=== PATIENT | male | born 1960 | race Caucasian/White ===

== ENCOUNTER 2017-03-30 21:09 | Emergency (ER) | payer OTHER ==
--- NOTE | 2017-03-30 22:03 | XRAY Preliminary Report ---
Exam: XR Ankle 3 View RT IMPRESSION: No bony abnormality. [facility] SITE ID: [id number]
--- NOTE | 2017-03-30 22:04 | XRAY Report ---
EXAM: RIGHT ANKLE RADIOGRAPHY EXAM DATE: 03/30/2017 09:38 PM. CLINICAL HISTORY: Fall. Inversion injury. Pain and swelling. COMPARISON: None. TECHNIQUE: 3 views. FINDINGS: Bones: Normal. No fractures or bone lesions. Joints: Normal. No effusion. No subluxations. The ankle mortise is normally aligned. Soft Tissues: Lateral soft tissue swelling. IMPRESSION: No bony abnormality. [facility] Referring Provider Line: [phone] SITE ID: [id number]
--- NOTE | 2017-03-30 22:12 | ED Physician Documentation ---
PD HPI LOWER EXT INJURY - Stated complaint Stated Complaint: RT ANKLE PAIN - Chief complaint Chief Complaint: Ext Problem - History obtained from History obtained from: Patient - History of Present Illness PD HPI LOW EXT INJURY LOCATION: Right, Ankle Type of injury: Twist Where injury occurred: Home Timing - onset: Today Timing - duration: Hours Timing - details: Abrupt onset, Still present Worsened by: Moving, Palpating, Other (walking) Associated symptoms: Swelling. No: Weakness, Numbness Similar symptoms before: Has not had sx before Recently seen: Not recently seen Review of Systems Skin: denies: Abrasion (s), Laceration (s) Neurologic: denies: Focal weakness, Numbness, Headache, Head injury PD PAST MEDICAL HISTORY - Past Medical History Past Medical History: No Psych: None Musculoskeletal: None - Past Surgical History Past Surgical History: Yes - Present Medications Home Medications: Ambulatory Orders Medication Instructions Recorded Confirmed HYDROcod/ACETAM 5/325 [[place] 5/325] 1 tab PO Q6H PRN #15 tablet 03/30/17 - Allergies Allergies/Adverse Reactions: Allergies Allergy/AdvReac Type Severity Reaction Status Date / Time No Known Drug Allergies Allergy Verified 03/30/17 21:18 - Social History Does the pt smoke?: No Smoking Status: Never smoker Does the pt drink ETOH?: Yes Does the pt have substance abuse?: No - Immunizations Immunizations are current?: Yes - POLST Patient has POLST: No PD ED PE NORMAL - Vitals Vital signs reviewed: Yes - General General: Alert and oriented X 3, No acute distress, Well developed/nourished - Derm Derm: Normal color, Warm and dry - Extremities Extremities: Other (lateral ankle with moderate swelling and tenderness. Pain with ROm of the ankle, particularly inversion and plantarflexion. ) - Neuro Neuro: Alert and oriented X 3, No motor deficit, No sensory deficit Results - Vitals Vitals: Oxygen O2 Source Room air - Rads (name of study) right ankle Radiology: Prelim report reviewed, EMP read contemporaneously PD MEDICAL DECISION MAKING - ED course Complexity details: reviewed results (no fractures. Presume moderate sprain as unable to bear weight comfortably. ), considered differential, d/w patient Departure - Departure Disposition: 01 Home, Self Care Clinical Impression: Right ankle sprain Qualifiers: Encounter type: initial encounter Involved ligament of ankle: other ligament Qualified Code(s): S93.491A - Sprain of other ligament of right ankle, initial encounter Condition: Stable Record reviewed to determine appropriate education?: Yes Instructions: ED Sprain Ankle W X Ray Prescriptions: HYDROcod/ACETAM 5/325 [[place] 5/325] 1 tab PO Q6H PRN #15 tablet PRN Reason: Pain Comments: Use the ankle brace when up and around for 2-3 weeks until completely healed. Use ibuprofen or naproxen to 3 times daily for the next 5 or 6 days to help reduce pain and inflammation. Ice and elevate the ankle often the next couple of days. Progress weightbearing and activity as able provided the ankle is supported with use so it does not reinjure. Recheck if not better over the next couple of weeks. Use Tylenol or hydrocodone only if needed for worse pain. Discharge Date/Time: 03/30/17 22:55
[2017-03-30] MEDS ORDERED: HYDROcod/ACET 5/325 Prepack 6 PO ONE (22:22)
[2017-03-30 22:45] VITALS: BP 114/81
== END 2017-03-30 22:55 | disposition home or self-care (01) ==
LOC: ED 21:09
DX: S93.491A Sprain of other ligament of right ankle, initial encounter (principal); X50.0XXA Overexertion from strenuous movement or load, initial encounter; Y92.019 Unspecified place in single-family (private) house as the place of occurrence of the external cause
CPT/HCPCS: 99283

== ENCOUNTER 2017-11-02 11:04 | Outpatient (CLI) | payer OTHER ==
--- NOTE | 2017-11-02 15:23 | XRAY Report ---
TWO VIEW CHEST: 11/02/2017 CLINICAL INDICATION: Persistent cough. COMPARISON: Frontal chest 01/27/2011. FINDINGS: Frontal and lateral views of the chest demonstrate a normal cardiac silhouette. The lungs are clear. No effusion or pneumothorax is present. IMPRESSION: NORMAL CHEST. TD: 11/02/2017 15:23
== END 2017-11-02 11:05 | disposition home or self-care (01) ==
LOC: DI.S 11:04
PROVIDERS: ATTEND Registered Nurse
DX: R05 Cough (principal)
CPT/HCPCS: 71046

== ENCOUNTER 2020-11-11 17:41 | Outpatient (CLI) | payer OTHER ==
--- NOTE | 2020-11-11 18:23 | XRAY Report ---
PROCEDURE: Hand 3 View RT INDICATIONS: RIGHT MCP JOINY DEFORMITY,PAIN, SWELLING TECHNIQUE: 3 views of the hand(s) acquired. COMPARISON: None FINDINGS: Bones: No fractures or dislocations. Osteoarthritic changes are noted throughout interphalangeal teetee nts and first MCP joint. Subtle erosion involving ulnar aspect of third MCP joint is seen. No suspici ous bony lesions. Soft tissues: No suspicious soft tissue calcifications. 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 Superimposed osteoarthritic changes in first MCP joint and first through fif th interphalangeal joints. Reviewed by: Garrett Garcia MD on 11/11/2020 6:22 PM PST Approved by: Garrett Garcia MD on 11/11/2020 6:22 PM PST Station ID: [id number]
--- NOTE | 2020-11-11 18:23 | XRAY Report ---
PROCEDURE: Chest 2 View X-Ray INDICATIONS: CHEST XRAY TECHNIQUE: 2 view(s) of the chest. COMPARISON: None. FINDINGS: Surgical changes and devices: None. Lungs and pleura: No pleural effusions or pneumothorax. Lungs are clear. Mediastinum: Mediastinal contours are normal. Heart size is normal. Bones and chest wall: No suspicious bony abnormalities. Soft tissues appear unremarkable. IMPRESSION: No acute cardiopulmonary pathology. Reviewed by: Garrett Garcia MD on 11/11/2020 6:22 PM [facility] Approved by: Garrett aGrcia MD on 11/11/2020 6:22 PM [facility] Station ID: [id number]
== END 2020-11-11 17:42 | disposition home or self-care (01) ==
LOC: DI.S 17:41
PROVIDERS: ATTEND Nurse Practitioner Family
DX: M79.644 Pain in right finger(s) (principal); M19.041 Primary osteoarthritis, right hand; R05 Cough

== ENCOUNTER 2020-11-18 18:19 | Outpatient (CLI) | payer OTHER ==
--- NOTE | 2020-11-18 19:05 | XRAY Report ---
PROCEDURE: Lumbar Spine 2 View INDICATIONS: LOW BACK PAIN TECHNIQUE: 2 views of the lumbar spine were acquired. COMPARISON: CXR 11/11/2020. FINDINGS: Bones: 5 lft-smg-vydflyw vertebrae suspected. There is normal bony alignment. No vertebral body co mpression fractures. Mild degenerative change appreciated. No suspicious bony lesions. Soft tissues: Overlying bowel gas pattern is normal. No suspicious soft tissue calcifications. IMPRESSION: Mild degenerative change of the lumbar spine. If clinically indicated consider further evaluation with MRI or CT. Reviewed by: Yoni Nash MD on 11/18/2020 6:04 PM [facility] Approved by: Yoni Nash MD on 11/18/2020 6:04 PM [facility] Station ID: [id number]
== END 2020-11-18 18:20 | disposition home or self-care (01) ==
LOC: DI.S 18:19
PROVIDERS: ATTEND Nurse Practitioner Family
DX: M47.816 Spondylosis without myelopathy or radiculopathy, lumbar region (principal)

== ENCOUNTER 2022-03-24 03:33 | Emergency (ER) | payer OTHER ==
[2022-03-24] MEDS ORDERED: LIDOCAINE PATCH 5% TOP STA (04:00)
[2022-03-24] MEDS ORDERED: KETOROLAC 60 MG/2 ML VIAL IM STA (04:00)
--- NOTE | 2022-03-24 04:09 | ED Physician Documentation ---
PD HPI LOWER EXT INJURY - Stated complaint Stated Complaint: left leg pain - Chief complaint Chief Complaint: Ext Problem - History obtained from History obtained from: Patient - Additional information Additional information: Patient is a 61-year-old male with no significant past medical history presenting for evaluation of left thigh pain that has been present for the last 3 to 4 days. He describes it as a deep ache in the bone. Nothing makes it better or worse. He has tried stretching it and drinking more water thinking it was a muscle cramp which is not changed the pain. He has been having trouble sleeping the past 3 nights. He denies any known injuries or falls. He has been moving furniture around and thought perhaps he had overdone it. Again it does not feel worse when he is ambulating on it. Pain does not radiate elsewhere. He denies headache, fever, chest pain, trouble breathing, abdominal pain, back pain, lower leg pain. He denies a history of PE or DVT. Review of Systems Constitutional: denies: Fever Nose: denies: Congestion Throat: denies: Sore throat Cardiac: denies: Chest pain / pressure Respiratory: denies: Dyspnea GI: denies: Abdominal Pain, Vomiting Skin: denies: Rash Musculoskeletal: reports: Extremity pain Neurologic: denies: Headache PD PAST MEDICAL HISTORY - Past Medical History Past Medical History: No Psych: None Musculoskeletal: None - Past Surgical History Past Surgical History: Yes - Present Medications Home Medications: Ambulatory Orders Medication Instructions Recorded Confirmed Fluticasone/Salmeterol [Advair 1 puffs INH BID 03/24/22 03/24/22 100-50 Diskus] - Allergies Allergies/Adverse Reactions: Allergies Allergy/AdvReac Type Severity Reaction Status Date / Time No Known Drug Allergies Allergy Verified 03/24/22 03:42 - Social History Does the pt smoke?: No Smoking Status: Never smoker Does the pt drink ETOH?: Yes Does the pt have substance abuse?: No - Immunizations Immunizations are current?: Yes - POLST Patient has POLST: No PD ED PE NORMAL - General General: Alert and oriented X 3, No acute distress, Well developed/nourished - HEENT HEENT: Atraumatic, Moist mucous membranes - Neck Neck: Supple, no meningeal sign - Cardiac Cardiac: RRR, No murmur, Strong equal pulses - Respiratory Respiratory: No respiratory distress, Clear bilaterally - Abdomen Abdomen: Normal bowel sounds, Soft, Non tender, Non distended - Derm Derm: Warm and dry - Extremities Extremities: No deformity, Normal ROM s pain, No edema, No calf tenderness / cord, Other (Pedal pulses intact,Normal range of motion without pain at left hip and knee,Reports mild tenderness medially and laterallyTo thigh, ) Results - Vitals Vitals: Vital Signs - 24 hr 03/24/22 03/24/22 03:42 04:45 Temperature 36.4 C L 36.5 C Heart Rate 68 62 Respiratory 16 17 Rate Blood Pressure 151/90 H 139/79 H O2 Saturation 98 99 Oxygen O2 Source Room air - Labs Labs: Laboratory Tests 03/24/22 03/24/22 03/24/22 04:08 04:08 04:08 WBC 8.1 RBC 4.76 Hgb 14.9 Hct 42.3 MCV 88.9 MCH 31.3 H MCHC 35.2 RDW 12.4 Plt Count 253 MPV 8.7 Neut # (Auto) 4.5 Lymph # (Auto) 2.2 [place] # (Auto) 0.7 Eos # (Auto) 0.5 Baso # (Auto) 0.1 Absolute Nucleated RBC 0.00 Nucleated RBC % 0.0 D-Dimer 216.4 Sodium 136 Potassium 3.8 Chloride 106 Carbon Dioxide 23 Anion Gap 7.0 BUN 13 Creatinine 0.8 Estimated GFR (MDRD) 99 Glucose 128 H Calcium 8.8 Magnesium 2.2 PD MEDICAL DECISION MAKING - ED course Complexity details: reviewed results, re-evaluated patient ED course: Patient with left thigh pain for 3 days. He is ambulatory with normal steady gait. No swelling noted on exam, no rash or signs of cellulitis. Pedal pulses intact. Normal range of motion at joint above and below. Labs obtained with normal electrolytes. D-dimer is negative.X-ray on my preliminary interpretation is negative for fracture or dislocation or other significant findings. Unclear as to exact nature of his pain but overall he is well-appearing and appears neurovascularly intact. Pain is nonmigratory. Will give short course of narcotic pain medications to aid in sleep. Encouraged close follow-up with PCP. Departure - Departure Disposition: 01 Home, Self Care Clinical Impression: Left thigh pain Condition: Stable Instructions: ED Muscle Pain Leg Cramps, ED Strain Muscle Ext Comments: You were evaluated for pain to your left leg. An x-ray was done and I do not see signs of a fracture or other significant abnormality. Labs were also obtained and are normal. This includes a marker for blood clots, electrolytes as well as checking your white blood cell count and hemoglobin. I have given you a small amount of narcotic pain medication so that you can get some sleep. Please reach out to your primary care doctor in the morning for close follow-up. If your pain changes or worsens in any way or you develop any new symptoms please consider return to the emergency department. I am prescribing a short course of narcotic pain medication for you. These are potentially dangerous and addictive medications that should be used carefully. These medications may constipate you. Take an opaa-zel-czriwbq stool softener (docusate) twice daily with plenty of water while taking these medications. If you go 24 hours without a bowel movement, take [id number] miralax, per package instructions. Do not drink or drive while taking these medications. If you received narcotic or sedating medications while in the emergency department, do not drive for 24 hours. Store this medication in a safe, secure place and out of reach of children. It is a violation of federal law to give or sell this medication to another person or to use in a manner other than prescribed. The ED will not refill narcotic prescriptions, including prescriptions lost or stolen. To dispose of unwanted medications: 1. [facility] at [address] in [place] has a medication drop box. They accept prescription medications (in pill form) Wednesday through Wednesday 9:00 a.m. to 5:00 p.m. 2. [facility] [employer] accepts prescription medications (in pill form only) for disposal year round. Call for more information. 3. Contact the [facility] for the next [facility] sponsored prescription drug collection event. , [phone], or [phone]; Note that many narcotic pain relievers also contain Tylenol/acetaminophen. Please ensure that your total dose of acetaminophen from all sources does not exceed 3 g (3000 mg) per day. Discharge Date/Time: 03/24/22 04:45
[2022-03-24 04:15] LABS: BASOPHILS # (AUTO) 0.1 10^3/uL (0.0-0.1); EOSINOPHILS # (AUTO) 0.5 10^3/uL (0.0-0.7); EOSINOPHILS % (AUTO) 6.1 %; HCT - HEMATOCRIT 42.3 % (42.0-52.0); HGB - HEMOGLOBIN 14.9 g/dL (14.0-18.0); LYMPHOCYTES # (AUTO) 2.2 10^3/uL (1.5-3.5); LYMPHOCYTES % (AUTO) 27.1 %; MEAN CORPUSCULAR HEMOGLOBIN 31.3 pg (27.0-31.0); MEAN CORPUSCULAR HGB CONC 35.2 g/dL (32.0-36.0); MEAN CORPUSCULAR VOLUME 88.9 fL (80.0-94.0); MEAN PLATELET VOLUME 8.7 fL (7.4-11.4); MONOCYTES # (AUTO) 0.7 10^3/uL (0.0-1.0); MONOCYTES % (AUTO) 9.1 %; NEUTROPHILS # (AUTO) 4.5 10^3/uL (1.5-6.6); NEUTROPHILS % (AUTO) 55.8 %; PLT - PLATELET COUNT 253 10^3/uL (130-450); RED BLOOD COUNT 4.76 10^6/uL (4.70-6.10); RED CELL DISTRIBUTION WIDTH 12.4 % (12.0-15.0); WHITE BLOOD COUNT 8.1 x10^3/uL (4.8-10.8)
[2022-03-24 04:22] LABS: CALCIUM 8.8 mg/dL (8.5-10.3); CREATININE 0.8 mg/dL (0.6-1.2); MAGNESIUM 2.2 mg/dL (1.7-2.8); POTASSIUM 3.8 mmol/L (3.5-5.0)
[2022-03-24] MEDS ORDERED: oxyCODONE/ACET 5/325 Prepack 4 PO STA (04:38)
[2022-03-24 04:47] VITALS: BP 139/79
--- NOTE | 2022-03-24 08:48 | XRAY Report ---
PROCEDURE: Femur 2V LT INDICATIONS: pain TECHNIQUE: AP and lateral views of the femur were acquired. COMPARISON: None. FINDINGS: Bones: No acute fractures or dislocations. No suspicious bony lesions. Small suprapatellar enthesop hyte. Soft tissues: No suspicious soft tissue calcifications or masses. IMPRESSION: No acute osseous abnormality. If there is clinical concern or persistent symptoms, additional imaging such as repeat radiographs or advanced imaging (e.g. CT, MRI) may be helpful for further evaluation. There is no significant discrepancy when compared with the preliminary overnight report. Reviewed by: Siddhartha Suarez MD on 03/24/2022 8:47 AM PDT Approved by: Siddhartha Suarez MD on 03/24/2022 8:47 AM PDT Station ID: [id number]
== END 2022-03-24 04:45 | disposition home or self-care (01) ==
LOC: ED 03:33
DX: M79.652 Pain in left thigh (principal)
CPT/HCPCS: 36415; 73552; 80048; 83735; 85025; 85379; 96372; 99282; 99284; A9270